=== PATIENT | female | born 1990 | race Caucasian/White ===

== ENCOUNTER → 2021-11-24 | Outpatient (CLI) | payer OTHER ==
[~2021-11-24] MED LIST: ASPIRIN CHEWABL81 MG PO; CLARITIN10 M2 PO; COLACE 100MG C100 MG PO; IBUPROFEN600 MG PO; LORATADINE10 MG PO; NORCO 5-325 TA1 EACH PO; PHENERGAN 25 MG25 M1 PO; PRENATAL ONE T1 EACH PO; PRENATAL VIT PO; SINGULAIR10 MG PO; ZOLOFT100 MG PO
== END ==
LOC: HEART CORB 09:00
DX: R07.89 Other chest pain (principal); I10 Essential (primary) hypertension; R00.0 Tachycardia, unspecified
CPT/HCPCS: 93306

== ENCOUNTER → 2022-07-02 | Outpatient (CLI) | payer OTHER | LOC: KOH-I 10:30 | DX: S83.511A Sprain of anterior cruciate ligament of right knee, initial encounter (principal); M25.461 Effusion, right knee | CPT/HCPCS: 73721 ==